=== PATIENT | male | born 1960 | race Caucasian/White ===

== ENCOUNTER 2018-10-18 09:15 | Emergency (ER) | payer OTHER, SELFPAY ==
--- NOTE | 2018-10-18 09:52 | RAD REPORT ---
EXAM DESCRIPTION: RAD - Knee Left 3 View - 10/18/2018 9:45 am CLINICAL HISTORY: PAIN Trauma, pain and swelling COMPARISON: No comparisons FINDINGS: Medial compartment space narrowing is present compatible with mild osteoarthritis. No frac ture, dislocation or significant joint effusion.
--- NOTE | 2018-10-18 10:10 | ER ---
Nurse's Notes [facility] Name: Bryan Pina Age: 58 yrs Sex: Male : 1960 Arrival Date: 10/18/2018 Time: 09:17 Bed 12 Private MD: Diagnosis: Pain in left knee;Fall on same level from slipping, tripping and stumbling Presentation: 10/18 09:23 Presenting complaint: Patient states: L knee pain after tripping and falling on it from ss a standing position. Pt reports that pain is minimal when standing, but when bending it is when it is at it's worse. Transition of care: patient was not received from another setting of care. Onset of symptoms was October 17, 2018. Risk Assessment: Do you want to hurt yourself or someone else? Patient reports no desire to harm self or others. Initial Sepsis Screen: Does the patient meet any 2 criteria? No. Patient's initial sepsis screen is negative. Does the patient have a suspected source of infection? No. Patient's initial sepsis screen is negative. Care prior to arrival: None. 09:23 Method Of Arrival: Ambulatory ss 09:23 Acuity: MOHSEN 4 ss Triage Assessment: 10:00 General: Appears in no apparent distress. Behavior is calm, cooperative. iw Historical: - Allergies: 09:25 No Known Allergies; ss - Home Meds: 09:25 None [Active]; ss - PMHx: 09:25 None; ss - PSHx: 09:25 R ankle; bilateral knee; ss - Immunization history:: Adult Immunizations unknown. - Social history:: Smoking status: Patient uses tobacco products, smokes one pack cigarettes per day. - Ebola Screening: : Patient denies exposure to infectious person Patient denies travel to an Ebola-affected area in the 21 days before illness onset. Screenin:20 Abuse screen: Denies threats or abuse. Denies injuries from another. Nutritional iw screening: No deficits noted. Tuberculosis screening: No symptoms or risk factors identified. Fall Risk None identified. Assessment: 10:00 General: Appears in no apparent distress. comfortable. Pain: Complains of pain in left iw knee. Neuro: Level of Consciousness is awake, alert, obeys commands, Moves all extremities. Cardiovascular: Patient's skin is warm and dry. Respiratory: Airway is patent Respiratory effort is even, unlabored. Derm: Skin is intact, is healthy with good turgor. Musculoskeletal: Range of motion: intact in all extremities. Vital Signs: 09:25 BP 122 / 82; Pulse 63; Resp 16; Temp 98.0(TE); Pulse Ox 98% on R/A; Weight 108.86 kg; ss Height 6 ft. 6 in. (198.12 cm); Pain 6/10; 09:25 Body Mass Index 27.73 (108.86 kg, 198.12 cm) ss ED Course: 09:17 Patient arrived in ED. as 09:23 Patient has correct armband on for positive identification. iw 09:24 Triage completed. ss 09:25 Arm band placed on right wrist. ss 09:46 Knee Left 3 View XRAY In Process Unspecified. EDMS 09:54 Mary Cheema, RN is Primary Nurse. iw 09:57 Zenobia Cabrera FNP-C is PHCP. kb 09:57 Nik Walker MD is Attending Physician. kb 10:21 No provider procedures requiring assistance completed. Patient did not have IV access iw during this emergency room visit. Administered Medications: No medications were administered Outcome: 10:10 Discharge ordered by . kb 10:21 Discharged to home ambulatory. iw 10:21 Condition: good 10:21 Discharge instructions given to patient, Instructed on discharge instructions, follow up and referral plans. medication usage, Demonstrated understanding of instructions, follow-up care, medications, Prescriptions given X 1. 10:22 Patient left the ED. iw Signatures: Dispatcher [employer] EDMS Zenobia Cabrera FNP-C FNP-Ckb Martinez, Amelia as Mary Cheema, JUDE ROQUE iw Rosmery Horta RN RN
--- NOTE | 2018-10-18 10:10 | EDPHYS ---
Physician Documentation [facility] Name: Bryan Pina Age: 58 yrs Sex: Male : 1960 Arrival Date: 10/18/2018 Time: 09:17 Bed 12 Private MD: ED Physician Nik Walker HPI: 10/18 10:08 This 58 yrs old Male presents to ER via Ambulatory with complaints of Knee kb Pain. 10:08 The patient presents with an injury, pain. The complaints affect the left knee. 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 Onset: The symptoms/episode began/occurred yesterday. Modifying factors: The symptoms are alleviated by nothing. the symptoms are aggravated by bending knee. Associated signs and symptoms: The patient has no apparent associated signs or symptoms. Treatment prior to arrival includes: icing the affected extremity. Severity of symptoms: At their worst the symptoms were moderate, in the emergency department the symptoms are unchanged. The patient has not experienced similar symptoms in the past. The patient has not recently seen a physician. Historical: - Allergies: 09:25 No Known Allergies; ss - Home Meds: 09:25 None [Active]; ss - PMHx: 09:25 None; ss - PSHx: 09:25 R ankle; bilateral knee; ss - Immunization history:: Adult Immunizations unknown. - Social history:: Smoking status: Patient uses tobacco products, smokes one pack cigarettes per day. - Ebola Screening: : Patient denies exposure to infectious person Patient denies travel to an Ebola-affected area in the 21 days before illness onset. ROS: 10:08 Constitutional: Negative for fever, chills, and weight loss, Cardiovascular: Negative kb for chest pain, palpitations, and edema, Respiratory: Negative for shortness of breath, cough, wheezing, and pleuritic chest pain, Abdomen/GI: Negative for abdominal pain, nausea, vomiting, diarrhea, and constipation, Skin: Negative for injury, rash, and discoloration, Neuro: Negative for headache, weakness, numbness, tingling, and seizure. 10:08 MS/extremity: Positive for injury or acute deformity, pain. Exam: 10:08 Constitutional: This is a well developed, well nourished patient who is awake, alert, kb and in no acute distress. Head/Face: Normocephalic, atraumatic. ENT: Nares patent. No nasal discharge, no septal abnormalities noted. Tympanic membranes are normal and external auditory canals are clear. Oropharynx with no redness, swelling, or masses, exudates, or evidence of obstruction, uvula midline. Mucous membranes moist. Neck: Trachea midline, no thyromegaly or masses palpated, and no cervical lymphadenopathy. Supple, full range of motion without nuchal rigidity, or vertebral point tenderness. No Meningismus. Chest/axilla: Normal chest wall appearance and motion. Nontender with no deformity. No lesions are appreciated. Cardiovascular: Regular rate and rhythm with a normal S1 and S2. No gallops, murmurs, or rubs. Normal PMI, no JVD. No pulse deficits. Respiratory: Lungs have equal breath sounds bilaterally, clear to auscultation and percussion. No rales, rhonchi or wheezes noted. No increased work of breathing, no retractions or nasal flaring. Abdomen/GI: Soft, non-tender, with normal bowel sounds. No distension or tympany. No guarding or rebound. No evidence of tenderness throughout. Back: No spinal tenderness. No costovertebral tenderness. Full range of motion. Skin: Warm, dry with normal turgor. Normal color with no rashes, no lesions, and no evidence of cellulitis. MS/ Extremity: Pulses equal, no cyanosis. Neurovascular intact. Full, normal range of motion. Neuro: Awake and alert, GCS 15, oriented to person, place, time, and situation. Cranial nerves II-XII grossly intact. Motor strength 5/5 in all extremities. Sensory grossly intact. Cerebellar exam normal. Normal gait. 10:08 Musculoskeletal/extremity: Extremities: Vital Signs: 09:25 BP 122 / 82; Pulse 63; Resp 16; Temp 98.0(TE); Pulse Ox 98% on R/A; Weight 108.86 kg; ss Height 6 ft. 6 in. (198.12 cm); Pain 6/10; 09:25 Body Mass Index 27.73 (108.86 kg, 198.12 cm) ss MDM: 09:58 Patient medically screened. kb 10:08 Data reviewed: vital signs, nurses notes. Data interpreted: Pulse oximetry: on room air kb is 98 %. Interpretation: normal. Counseling: I had a detailed discussion with the patient and/or guardian regarding: the historical points, exam findings, and any diagnostic results supporting the discharge/admit diagnosis, radiology results, the need for outpatient follow up, a family practitioner, to return to the emergency department if symptoms worsen or persist or if there are any questions or concerns that arise at home. 10/18 09:25 Order name: Knee Left 3 View XRAY; Complete Time: 09:58 ss 10/18 10:08 Order name: Gunner Wrap; Complete Time: 10:21 kb Administered Medications: No medications were administered Disposition: 15:04 Co-signature as Attending Physician, Nik Walker MD I agree with the assessment and mildred plan of care. Disposition: 10/18/18 10:10 Discharged to Home. Impression: Pain in left knee, Fall on same level from slipping, tripping and stumbling. - Condition is Stable. - Discharge Instructions: Knee Pain, [id number]. - Prescriptions for Diclofenac Sodium 75 mg Oral Tablet, Delayed Release (E.C.) - take 1 tablet by ORAL route 2 times per day As needed; 30 tablet. - Medication Reconciliation Form, Thank You Letter, Antibiotic Education, Prescription Opioid Use, Work release form form. - Follow up: Emergency Department; When: As needed; Reason: Worsening of condition. Follow up: Private Physician; When: 2 - 3 days; Reason: Recheck today's complaints, Continuance of care, Re-evaluation by your physician. Signatures: Dispatcher [employer] Zenoiba Hsieh, LABOR OPERATOR-C LABOR OPERATOR-Nik Cordova MD MD cha Williams, Irene, RN RN iw Smirch, Shelby, RN RN ss Corrections: (The following items were deleted from the chart) 10:22 10:10 10/18/2018 10:10 Discharged to Home. Impression: Pain in left knee; Fall on same iw level from slipping, tripping and stumbling. Condition is Stable. Forms are Medication Reconciliation Form, Thank You Letter, Antibiotic Education, Prescription Opioid Use. Follow up: Emergency Department; When: As needed; Reason: Worsening of condition. Follow up: Private Physician; When: 2 - 3 days; Reason: Recheck today's complaints, Continuance of care, Re-evaluation by your physician. kb
== END 2018-10-18 10:22 | disposition home or self-care (01) ==
LOC: ER 09:15
DX: M25.562 Pain in left knee (principal); W01.0XXA Fall on same level from slipping, tripping and stumbling without subsequent striking against object, initial encounter; F17.210 Nicotine dependence, cigarettes, uncomplicated
CPT/HCPCS: 99283